=== PATIENT | male | born 1985 | race Caucasian/White ===

== ENCOUNTER 2018-02-09 09:13 | Emergency (ER) | payer BC, MEDICAID ==
[2018-02-09 09:16] VITALS: BMI 20.9
[2018-02-09 09:18] VITALS: BP 117/71; PULSE 88; RESP 17; TEMP 97.6; O2SAT 99
--- NOTE | 2018-02-09 10:07 | ED PDOC ---
HPI: Male Pain Time Seen by Provider: 02/09/18 09:21 Chief Complaint (Nursing): Male Genitourinary Chief Complaint (Provider): Male Genitourinary History Per: Patient History/Exam Limitations: no limitations Associated Symptoms: Urinary Symptoms (slight burning with urination). denies: Fever, Chills Additional Complaint(s): 32 y/o male presents to ER for evaluation of slight burning sensation with urination. Has urgency of urination. Recently did an increased protein supplement and then stopped. Feels it got him dehydrated. Patient reports using Azo for UTI and used test strip that showed he was negative for nitrate but positive for leukocytes. He denies any back pain, abdominal pain, rash, chills, fever or allergies. No testicular pain. States he was tested stds and is neg. PMD: non provided Past Medical History Reviewed: Historical Data, Nursing Documentation, Vital Signs Vital Signs: Last Vital Signs Temp 97.6 F 02/09/18 09:17 Pulse 88 02/09/18 09:17 Resp 17 02/09/18 09:17 BP 117/71 02/09/18 09:17 Pulse Ox 99 02/09/18 09:17 GORDO Report Viewed: Yes - Medical History PMH: No Chronic Diseases - Surgical History Surgical History: No Surg Hx - Family History Family History: States: Unknown Family Hx - Social History Current smoker - smoking cessation education provided: Yes Alcohol: None Drugs: Denies - Immunization History Hx Tetanus Toxoid Vaccination: Yes Hx Influenza Vaccination: No Hx Pneumococcal Vaccination: No - Home Medications Home Medications: Ambulatory Orders Medication Instructions Recorded Silver Sulfadiazine 1% 20 gm 1 ea TOP DAILY #30 gr 12/17/13 [Silvadene] Nitrofurantoin Macrocrystals 100 mg PO BID #10 cap 02/09/18 [Macrobid] - Allergies Allergies/Adverse Reactions: Allergies Allergy/AdvReac Type Severity Reaction Status Date / Time No Known Allergies Allergy Verified 03/24/14 16:47 Review of Systems ROS Statement: Except As Marked, All Systems Reviewed And Found Negative Constitutional: Negative for: Fever, Chills Gastrointestinal: Negative for: Abdominal Pain Genitourinary Male: Positive for: Dysuria, Other (Slight burning sensation with urination) Skin: Negative for: Rash Physical Exam - Reviewed Nursing Documentation Reviewed: Yes Vital Signs Reviewed: Yes - Physical Exam Appears: Positive for: Non-toxic, No Acute Distress Head Exam: Positive for: ATRAUMATIC, NORMOCEPHALIC Skin: Positive for: Normal Color, Warm, Dry Neck: Positive for: Normal, Painless ROM, Supple Cardiovascular/Chest: Positive for: Regular Rate, Rhythm. Negative for: Murmur Respiratory: Positive for: Normal Breath Sounds. Negative for: Wheezing Gastrointestinal/Abdominal: Positive for: Normal Exam, Soft. Negative for: Tenderness Back: Positive for: Normal Inspection. Negative for: L CVA Tenderness, R CVA Tenderness Extremity: Positive for: Normal ROM. Negative for: Pedal Edema, Swelling Neurologic/Psych: Positive for: Alert, Oriented (x3) - Laboratory Results Urine dip results: Positive for: Leukocyte Esterase - ECG O2 Sat by Pulse Oximetry: 99 (RA) Pulse Ox Interpretation: Normal - Progress ED Course And Treament: 1034: Stable. AAOx3. Pain free. Will dc with macrobid. Medical Decision Making Medical Decision Making: Time: 947 Initial plan: --Urine dipstick Scribe Attestation: Documented by Megan Valdes, acting as a scribe for Domingo Capellan MD. Provider Scribe Attestation: All medical record entries made by the Scribe were at my direction and personally dictated by me. I have reviewed the chart and agree that the record accurately reflects my personal performance of the history, physical exam, medical decision making, and the department course for this patient. I have also personally directed, reviewed, and agree with the discharge instructions and disposition. Disposition - Clinical Impression Clinical Impression: Urinary tract infection - Patient ED Disposition Is Patient to be Admitted: No Counseled Patient/Family Regarding: Studies Performed, Diagnosis, Need For Fol lowup, Rx Given - Disposition Referrals: [facility] [Outside] - 02/11/18 Disposition: Routine/Home Disposition Time: 10:38 Condition: STABLE Additional Instructions: Return if not better in 3 days. Prescriptions: Nitrofurantoin Macrocrystals [Macrobid] 100 mg PO BID #10 cap Instructions: Urinary Tract Infection, Adult (DC) Forms: [employer] (Frisian)
== END 2018-02-09 10:45 | disposition home or self-care (01) ==
LOC: H.ER 09:13
DX: N39.0 Urinary tract infection, site not specified (principal); F17.200 Nicotine dependence, unspecified, uncomplicated

== ENCOUNTER 2018-02-18 11:14 | Emergency (ER) | payer MEDICAID ==
[2018-02-18 11:14] VITALS: BMI 20.9
[2018-02-18 11:45] VITALS: BP 120/64; PULSE 84; RESP 16; TEMP 98.4; O2SAT 96
--- NOTE | 2018-02-18 12:29 | ED PDOC ---
HPI: Male Pain Time Seen by Provider: 02/18/18 12:16 Chief Complaint (Nursing): Male Genitourinary Chief Complaint (Provider): Male Genitourinary History Per: Patient History/Exam Limitations: no limitations Onset/Duration Of Symptoms: Days (x14) Current Symptoms Are (Timing): Still Present Additional Complaint(s): Patient is a 32 y/o male with no significant PMHx who presents to the ED for evaluation of a UTI, ongoing for the last two weeks. Patient reports to have come to the ED prior and was prescribed 100 mg of Macrobid for relief. Patient states his symptoms improved considering he no longer felt pain in his bladder during urination, however, still feels a "tingling" sensation. The patient denies blood in urine, back pain, fever, or chills. PCP: None Provided. Past Medical History Reviewed: Historical Data, Nursing Documentation, Vital Signs Vital Signs: Last Vital Signs Temp 98.4 F 02/18/18 11:43 Pulse 84 02/18/18 11:43 Resp 16 02/18/18 11:43 BP 120/64 02/18/18 11:43 Pulse Ox 96 02/18/18 11:43 - Medical History PMH: No Chronic Diseases - Surgical History Surgical History: No Surg Hx - Family History Family History: States: Unknown Family Hx - Immunization History Hx Tetanus Toxoid Vaccination: Yes Hx Influenza Vaccination: No Hx Pneumococcal Vaccination: No - Home Medications Home Medications: Ambulatory Orders Medication Instructions Recorded Silver Sulfadiazine 1% 20 gm 1 ea TOP DAILY #30 gr 12/17/13 [Silvadene] Nitrofurantoin Macrocrystals 100 mg PO BID #10 cap 02/09/18 [Macrobid] - Allergies Allergies/Adverse Reactions: Allergies Allergy/AdvReac Type Severity Reaction Status Date / Time No Known Allergies Allergy Verified 03/24/14 16:47 Review of Systems ROS Statement: Except As Marked, All Systems Reviewed And Found Negative Constitutional: Negative for: Fever, Chills Genitourinary Male: Positive for: Penile Pain (Tingling). Negative for: Dysuria, Hematuria Musculoskeletal: Negative for: Back Pain, Other (Bladder Pain) Physical Exam - Reviewed Nursing Documentation Reviewed: Yes Vital Signs Reviewed: Yes - Physical Exam Appears: Positive for: No Acute Distress Head Exam: Positive for: ATRAUMATIC, NORMAL INSPECTION, NORMOCEPHALIC Skin: Positive for: Normal Color Eye Exam: Positive for: Normal appearance Neck: Positive for: Normal Cardiovascular/Chest: Positive for: Regular Rate, Rhythm Respiratory: Positive for: Normal Breath Sounds. Negative for: Decreased Breath Sounds, Respiratory Distress Gastrointestinal/Abdominal: Positive for: Normal Exam Back: Positive for: Normal Inspection. Negative for: L CVA Tenderness, R CVA Tenderness Extremity: Positive for: Normal ROM (Upper/Lower) Neurologic/Psych: Positive for: Alert, Oriented. Negative for: Motor/Sensory Deficits - ECG O2 Sat by Pulse Oximetry: 96 (RA) Pulse Ox Interpretation: Normal Medical Decision Making Medical Decision Making: Time: 1230 Plan: Urine Culture UA UA without clinical signifcant results; advised patient Pt is stable for discharge and is in no further need of emergency medical treatment Pt will be discharged Scribe Attestation: Documented by Jeanmarie Peñaloza, acting as a scribe for Arturo VEGA. Provider Scribe Attestation: All medical record entries made by the Scribe were at my direction and personally dictated by me. I have reviewed the chart and agree that the record accurately reflects my personal performance of the history, physical exam, medical decision making, and the department course for this patient. I have also personally directed, reviewed, and agree with the discharge instructions and disposition. Disposition - Clinical Impression Clinical Impression: Urinary tract infection without complication Doctor Will See Patient In The: Office Counseled Patient/Family Regarding: Studies Performed, Diagnosis, Need For Followup - Disposition Referrals: [facility] [Outside] Disposition: Routine/Home Disposition Time: 13:27 Condition: STABLE Additional Instructions: The results of your Urinalysis indicate no infection There is still a Urine Culture pending Instructions: Urinary Tract Infection, Adult (DC), Urinary Tract Infections in Adults Forms: [employer] (Nepalese)
[2018-02-18 12:42] LABS: SQUAMOUS EPITHIAL < 1 /hpf (0-5); URINE BILIRUBIN NEGATIVE (NEGATIVE); URINE BLOOD NEGATIVE (NEGATIVE); URINE CLARITY SLIGHTY-CLOUDY (Clear); URINE COLOR YELLOW (YELLOW); URINE GLUCOSE (UA) NEG (NEGATIVE); URINE LEUKOCYTE ESTERASE TRACE Leu/uL (Negative); URINE PROTEIN NEGATIVE (NEGATIVE); URINE UROBILINOGEN 0.2-1.0 mg/dL (0.2-1.0)
== END 2018-02-18 13:39 | disposition home or self-care (01) ==
LOC: H.ER 11:14
DX: N39.0 Urinary tract infection, site not specified (principal)